=== PATIENT | female | born 1965 | race Caucasian/White ===

== ENCOUNTER 2023-12-08 20:16 | Emergency (ER) | payer OTHER, SELFPAY ==
[2023-12-08 20:21] VITALS: BP 121/74
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
== END 2023-12-08 21:37 | disposition home or self-care (01) ==
LOC: EMR 20:16
PROVIDERS: EMERGENCY PHYSICIAN Student in an Organized Health Care Education/Training Program; FAMILY PHYSICIAN Family Medicine
DX: M25.562 Pain in left knee (principal)
CPT/HCPCS: 99283; 73564